=== PATIENT | male | born 1975 | race Caucasian/White ===

== ENCOUNTER 2018-06-29 06:02 | Day surgery (SDC) | payer OTHER ==
[~2018-06-29] VITALS: Ht 190.5 cm; Wt 99.8 kg
--- NOTE | ~2018-06-29 | OP ---
PATIENT NAME: YOLIE APPLE MEDICAL RECORD: [id number] :73 LOCATION:D.OPS ADMISSION DATE: SURGEON: GABRIEL ESTEBAN MD DATE OF OPERATION: 06/29/2018 PREOPERATIVE DIAGNOSIS: Skin lesion, suspicious for malignancy, baptiste of the left lower extremity. POSTOPERATIVE DIAGNOSIS: Skin lesion, suspicious for malignancy, baptiste of the left lower extremity. Please see dimensions below. PROCEDURE: Wide excision of 1.1 x 1.2 cm raised skin lesion of the left lower extremity (baptiste). The wide excision including margins measured 4.2 cm in the cephalad-caudad dimension and 2.0 cm in the medial-lateral dimension. SURGEON: Gabriel Esteban MD GUSSET RIPPER: None. BLOOD LOSS: Minimal. ANESTHESIA: General. COMPLICATIONS: None. The risks, possible complications, and alternatives to the procedure were explained to the patient. He elects to proceed. OPERATIVE COURSE: The patient was conveyed to the operating room electively on 06/29/2018. General anesthesia was induced by the anesthesia staff. The left lower extremity was sterilely prepped and draped. Through the use of double curvilinear incisions, I excised skin and subcutaneous tissue around this raised skin lesion which is suspicious for a malignancy. Grossly, the margins were negative. The specimen was oriented in 4 quadrants and sent to pathology for permanent sections. Subcutaneous flaps were created sharply. The closure was an intermediate closure. The subdermis was approximated with interrupted 3-0 Vicryls. The skin was approximated with a running intracuticular 3-0 Vicryl. Dermabond was then applied. A sterile dressing was then applied. The patient was then extubated and conveyed to the postanesthesia care unit, where he was in stable condition. I plan to contact the long term next Thursday when the pathology has returned and we can, at that time, discuss further therapy if it is necessary and that will depend on the histologic nature of the skin lesion. TRANSINT:[id number] Voice Confirmation ID: [id number] DOCUMENT ID: [id number] OPERATIVE REPORT [id number] SILVAGABRIEL CAMPBELL MD at 0039 CC: LILLIANA BRIAN MD and LUL GUZMÁN [id number] DICTATION DATE: 06/29/18 1605 SEMICONDUCTOR TECHNICIAN: 06/29/18 1722 DEP SDC 06/29/18 [facility] [address] [place] [address]
[2018-06-29] MEDS ORDERED: IBUPROFEN600 MG PO (06:31)
[2018-06-29 06:38] VITALS: BP 138/92; Ht 190.5 cm; Wt 99.8 kg
[2018-06-29 07:05] LABS: HEMATOCRIT 42.2 % (42.0-54.0); HEMOGLOBIN 13.9 g/dL (13.5-17.5); MCH 31.5 pg (26.0-34.0); MCHC 32.9 g/dL (31.0-37.0); MCV 95.7 fL (80.0-100.0); MEAN PLATELET VOLUME 9.8 fL (7.4-10.4); RBC 4.41 10x6/uL (4.20-6.10); WBC 4.5 10x3/uL (4.8-10.8)
== END 2018-06-29 16:24 | disposition other institution (70) ==
LOC: D.OPS 06:02
PROVIDERS: Anesthesiology
DX: C44.719 Basal cell carcinoma of skin of left lower limb, including hip (principal); Z01.812 Encounter for preprocedural laboratory examination